=== PATIENT | female | born 2000 | race Caucasian/White ===

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

== ENCOUNTER 2019-08-20 13:56 | Emergency (ER) | payer OTHER ==
[2019-08-20] MEDS ORDERED: Charcoal ACTIVATED* 25 GM/120 ML BTL PO ONE (14:06)
--- NOTE | 2019-08-20 14:15 | ED ---
Substance Abuse/Use - HPI Summary HPI Summary: 19 year old female presents to the ED by her family because she was found unresponsive secondary to Xanax overdose. She was first brought to Urgent Care, where she woke up and was brought to [facility]. Patient took 2 Xanaxs PO this morning recreationally, and was discovered by her family at 1150. She reports tooth pain and exhaustion. Pt denies any fever, chills, erythema of eyes, sore throat, CP, SOB, cough, abdominal pain, N/V, dysuria, hematuria, myalgia, edema , rash, or dizziness. She is not on her period. No thoughts of hurting herself or others. She does not drink alcohol. Patient smokes 1 pack of tobacco cigarettes a day, and has a history of heroin abuse. - History Of Current Complaint Chief Complaint: EDOverdose Stated Complaint: OVERDOSE PER PT MOM Time Seen by Provider: 08/20/19 14:00 Hx Obtained From: Patient Hx Last Menstrual Period: 03/21/18 ?: No Onset/Duration of Drug/ETOH Abuse: Hours Ingestion History: Type/Name Of Drug - Xanax, Amount Ingested - 2 bars, Approximate Time Of Ingestion - This morning Overdose Characteristics: Oral Severity Initially: Severe Severity Currently: Mild Character: Other - drowsy Associated Signs And Symptoms: Intentional Ingestion - Allergies/Home Medications Allergies/Adverse Reactions: Allergies Allergy/AdvReac Type Severity Reaction Status Date / Time bee stings Allergy Severe Anaphylatic Uncoded 03/25/18 18:30 Shock PMH/Surg Hx/FS Hx/Imm Hx Endocrine/Hematology History: Denies: Hx Diabetes, Hx Thyroid Disease Cardiovascular History: Denies: Hx Hypertension Respiratory History: Denies: Hx Asthma, Hx Chronic Obstructive Pulmonary Disease (COPD) GI History: Denies: Hx Ulcer Psychiatric History: Reports: Hx Depression Denies: Hx Eating Disorder, Hx of Violent Episodes Against Others Infectious Disease History: No Infectious Disease History: Denies: Hx Clostridium Difficile, Hx Hepatitis, Hx Human Immunodeficiency Virus (HIV), Hx of Known/Suspected MRSA, Hx Shingles, Hx Tuberculosis, Hx Known/ Suspected VRE, Hx Known/Suspected VRSA, History Other Infectious Disease, Traveled Outside the [place] in Last 30 Days - Family History Known Family History: Positive: None - Mother denies PMHX Family History: mother denies medical or mental health issues in family lineage - Social History Alcohol Use: None Hx Substance Use: Yes Substance Use Type: Reports: Heroin, Other - Xanax Hx Tobacco Use: Yes Smoking Status (MU): Current Some Day Smoker Type: Cigars Amount Used/How Often: 1 ppd Length of Time of Smoking/Using Tobacco: AGE 13 Cigarettes Packs Per Day: 1 Review of Systems Negative: Fever, Chills, Skin Diaphoresis Negative: Erythema Positive: Dental Pain. Negative: Sore Throat Negative: Chest Pain Negative: Shortness Of Breath, Cough Negative: Abdominal Pain, Vomiting, Nausea Negative: dysuria, hematuria Negative: Myalgia, Edema Negative: Rash Neurological: Negative - neg - dizziness, Other - LOC All Other Systems Reviewed And Are Negative: Yes Physical Exam - Summary Physical Exam Summary: Constitutional: Well-developed, Well-nourished. (-) Distressed. Altered mental status. Slurred speech. Drowsy. Skin: Warm, Dry HENT: Normocephalic; Atraumatic Eyes: Conjunctiva normal. Pinpoint pupils. Neck: Musculoskeletal ROM normal neck. (-) JVD, (-) Stridor, (-) Tracheal deviation Cardio: Rhythm regular, rate normal, Heart sounds normal; Intact distal pulses; The pedal pulses are 2+ and symmetric. Radial pulses are 2+ and symmetric. (-) Murmur Pulmonary/Chest wall: Effort normal. (-) Respiratory distress, (-) Wheezes, (-) Rales Abd: Soft, (-) tenderness, (-) Distension, (-) Guarding, (-) Rebound Musculoskeletal: (-) Edema Lymph: (-) Cervical adenopathy Neuro: Alert, Oriented x3 Psych: Mood and affect Normal Triage Information Reviewed: Yes Vital Signs On Initial Exam: Initial Vitals Temp Pulse Resp BP Pulse Ox 97.0 F 89 14 128/79 98 08/20/19 13:59 08/20/19 13:59 08/20/19 13:59 08/20/19 13:59 08/20/19 13:59 Vital Signs Reviewed: Yes Procedures - Sedation Patient Received Moderate/Deep Sedation with Procedure: No Diagnostics - Vital Signs Vital Signs Temp Pulse Resp BP Pulse Ox 08/20/19 13:59 97.0 F 89 14 128/79 98 - Laboratory Result Diagrams: 08/20/19 14:16 10/27/19 14:16 Lab Statement: Any lab studies that have been ordered have been reviewed, and results considered in the medical decision making process. Re-Evaluation - Re-Evaluation First Eval Re-Evaluation Time: 16:40 Change: Worse Comment: I was called to the room because she had repiratory depression after she returned from the bathroom with pinpoint pupils. Responded to Narcan bolis and was responsive afterwards. Course/Dx - Course Course Of Treatment: 19 year old female presents to the ED after overdosing on Xanax PO this morning. She was found unresponsive by her family at 1150 today and was brought to urgent care, where she regained consciousness and then brought to the ED. She has a history of heroin use and smokes 1 ppd tobacco. She does not drink alcohol. Patient reports a toothache and exhaustion. Physical exam normal except altered mental status: patient had slurred speech and was drowsy. Patient also had pinpoint pupils. Laboratory results show WBC 12.2, MPV 7.2, and creatinine of 0.99. At 1640 I was called to the room because she had repiratory depression after she returned from the bathroom with pinpoint pupils. Responded to Narcan bolis and was responsive afterwards. 45 minutes of critical care time were needed. Patient is being signed out at the end of my shift at [address] 08/[address] Buck, pending transfer. - Diagnoses Differential Diagnosis/HQI/PQRI: Positive: Drug Abuse Provider Diagnoses: Suicidal ideations, Drug abuse - Critical Care Time Critical Care Time: 30-74 min - 45 min. Discharge ED - Sign-Out/Discharge Documenting (check all that apply): Sign-Out Patient Signing out patient TO: Gisselle Buck - Patient is being signed out at the end of my shift at [address] 08/20/[address] Buck, pending transfer. - Discharge Plan Condition: Stable Disposition: PSYCHIATRIC FACILITY-OTHER Prescriptions: Naloxone Nasal [place]* [Narcan Nasal [place]] 4 mg NASAL ONCE PRN #2 nasal.spr PRN Reason: Sedation Referrals: Judith Montgomery MD [Primary Care Provider] - - Billing Disposition and Condition Condition: STABLE Disposition: Psychiatric Facility Other - Attestation Statements Document Initiated by Scribe: Yes Documenting Scribe: Julio Naqvi Provider For Whom Scribe is Documenting (Include Credential): Roberto Melo MD. Scribe Attestation: IJulio, scribed for Roberto Melo MD. on 08/21/19 at 0914. Scribe Documentation Reviewed: Yes Provider Attestation: The documentation as recorded by the scribe, Julio Naqvi accurately reflects the service I personally performed and the decisions made by me, Roberto Melo MD. Status of Scribe Document: Viewed
[2019-08-20 14:27] LABS: ABS Lymphocytes 1.2 10^3/ul (1.0-4.8); ABS Monocytes 0.6 10^3/ul (0-0.8); ABS Neutrophils 10.3 10^3/ul (1.5-7.7); Eosinophil % 0.1 %; Hematocrit 40 % (35-47); Hemoglobin 13.1 g/dL (12.0-16.0); Mean Corpuscular HGB Conc 33 g/dL (31-36); Mean Corpuscular Hemoglobin 28 pg (27-31); Mean Corpuscular Volume 87 fL (80-97); Mean Platelet Volume 7.2 fL (7.4-10.4); Platelet Count 288 10^3/uL (150-450); Red Blood Count 4.62 10^6 /uL (3.70-4.87); Red Cell Distribution Width 14 % (10-15); White Blood Count 12.2 10^3/uL (3.5-10.8)
[2019-08-20 14:44] LABS: ALT 14 U/L (7-52); Albumin 4.1 g/dL (3.2-5.2); Albumin/Globulin Ratio 1.8 (1-3); Alkaline Phosphatase 59 U/L (34-104); BUN/Creatinine Ratio 16.2 (8-20); Blood Urea Nitrogen 16 mg/dL (6-24); CO2 Carbon Dioxide 31 mmol/L (22-32); Calcium 9.1 mg/dL (8.6-10.3); Chloride 108 mmol/L (101-111); EGFR African American 86.5 (>60); EGFR Non-African American 71.5 (>60); Globulin 2.3 g/dL (2-4); Glucose 102 mg/dL (70-100); Sodium 141 mmol/L (135-145); Total Protein 6.4 g/dL (6.4-8.9)
[2019-08-20 14:58] LABS: Acetaminophen < 15 mcg/mL; Alcohol < 10 mg/dL (<10); Salicylate < 2.50 mg/dL (<30)
[2019-08-20 15:13] LABS: TSH (Thyroid Stimulating Horm) 0.34 mcIU/mL (0.34-5.60)
[2019-08-20 16:14] LABS: AST 14 U/L (13-39); Anion Gap 2 mmol/L (2-11); Potassium 4.3 mmol/L (3.5-5.0)
[2019-08-20] MEDS ORDERED: Naloxone Nasal Spray* 4 MG/0.1 ML NASAL.SPR INTRANASAL ONE (16:36)
[2019-08-20] MEDS ORDERED: Naloxone* 0.4 MG/ML 1 ML VIAL ONE (16:36)
[2019-08-20] MEDS ORDERED: Naloxone* 0.4 MG/ML 1 ML VIAL IV PUSH ONE (16:44)
[2019-08-20 17:03] LABS: Urine Appearance Clear; Urine Bacteria 1+ (Absent); Urine Bilirubin Negative (Negative); Urine Blood Negative (Negative); Urine Color Yellow; Urine Glucose Negative (Negative); Urine Ketones Negative (Negative); Urine Nitrite Positive (Negative); Urine Protein Negative (Negative); Urine Red Blood Cell Absent (Absent); Urine Specific Gravity 1.014 (1.010-1.030); Urine Squamous Epithelial Cell Present (Absent); Urine Urobilinogen Negative (Negative); Urine White Blood Cell 1+(6-10/hpf) (Absent)
[2019-08-20 17:11] LABS: Urine Benzodiazepine Screen Presumptive Positive (None Detect); Urine Opiates Screen Presumptive Positive (None Detect)
--- NOTE | 2019-08-20 19:32 | ED ---
Progress - Progress Note Progress Note: Pt is a signout from Dr. Melo at 1900 on 08/20/19 pending transfer. - Results/Orders Results/Orders: EKG at 0347 reveals normal sinus rhythm with rate of 97 BPM, no acute changes, no ischemic changes. This EKG was reviewed and interpreted by Dr. Buck. - Consult/PCP Time Called: 18:20 Re-Evaluation - Re-Evaluation First Eval Re-Evaluation Time: 23:26 Change: Unchanged Comment: Prescribed Bactrim for pt's UTI. Course/Dx - Course Course Of Treatment: Pt is a signout from Dr. Melo at 1900 on 08/20/19 pending transfer. Will be ordering Bactrim for pt's UTI. Pt was accepted to [facility] for transfer. Dx include suicidal ideations and drug abuse. EKG at 0347 reveals normal sinus rhythm with rate of 97 BPM, no acute changes, no ischemic changes. This EKG was reviewed and interpreted by Dr. Buck. - Diagnoses Provider Diagnoses: Suicidal ideations, Drug abuse Discharge ED - Sign-Out/Discharge Documenting (check all that apply): Patient Departure, Receiving Sign-Out Receiving patient FROM: Roberto Melo - Discharge Plan Condition: Stable Disposition: PSYCHIATRIC FACILITY-OTHER Prescriptions: Naloxone Nasal [place]* [Narcan Nasal [place]] 4 mg NASAL ONCE PRN #2 nasal.spr PRN Reason: Sedation Referrals: Judith Montgomery MD [Primary Care Provider] - - Billing Disposition and Condition Condition: STABLE Disposition: Psychiatric Facility Other - Attestation Statements Document Initiated by Scribe: Yes Documenting Scribe: Anisha Hills Provider For Whom Guille is Documenting (Include Credential): Gisselle Buck MD. Scribe Attestation: Anisha Key, scribed for Gisselle Buck MD. on 08/21/19 at 0512. Scribe Documentation Reviewed: Yes Provider Attestation: The documentation as recorded by the Anisha franco accurately reflects the service I personally performed and the decisions made by me, Gisselle Buck MD. Status of Scribe Document: Viewed
[2019-08-20] MEDS ORDERED: Sulfamethox/Trimethoprim DS 800/160* TAB PO ONE (23:25)
[2019-08-21 04:51] VITALS: BP 119/64
== END 2019-08-21 04:50 ==
LOC: ED 13:56
DX: R45.851 Suicidal ideations (principal); F13.10 Sedative, hypnotic or anxiolytic abuse, uncomplicated; K08.89 Other specified disorders of teeth and supporting structures; R53.83 Other fatigue; Z91.030 Bee allergy status; Z72.0 Tobacco use
CPT/HCPCS: 36415; 80053; 80307; 80320; 80329; 81003; 81015; 84443; 85025; 87077; 87086; 87186; 93005; 96374; 99285; A9270-GY; G0480; J2310